=== PATIENT | female | born 1955 | race African-American/Black ===

== ENCOUNTER 2017-02-18 11:52 | Emergency (ER) | payer MEDICAID ==
--- NOTE | 2017-02-18 12:04 | ED Physician Chart ---
Chief Complaint/HPI - Patient Information Date Seen:: 02/18/17 Time Seen:: 12:04 Chief Complaint:: DIFFICULTY BREATHING 3 days. History of Present Illness:: This 61-year-old female presents with a history of chronic respiratory distress which has become more severe over the past 3 days. Patient denies any fever or chills or diaphoresis. She has had no chest pain, cough or sputum production. She denies hemoptysis. She rates the severity of her symptoms as a 7/10 and they get worse with exertion. The patient also isn't able to lay flat in bed due to difficulty breathing. No history of PND. Patient has no prior history of congestive heart failure, pulmonary embolism, DVT, COPD, or asthma. The patient does not smoke. He is significantly overweight. Allergies:: Allergies Allergy/AdvReac Type Severity Reaction Status Date / Time No Known Allergies Allergy Verified 02/18/17 12:01 Family Medical History - Family Member Mother Hx Family Diabetes: Yes Physical Exam - Physical Examination Other Gen/Cons comments:: Patient is significantly overweight but appears to be in no acute respiratory distress. She is sitting in a chair next to the gurney and prefers to stay sitting. Head: Atraumatic Eyes: Lids, conjuctiva normal, PERRL, EOMI Skin: No rash, No skin lesions, No ecchymosis, Well hydrated, No lymphadenopathy ENMT: External ears, nose nl, TM canals nl, Nasal exam nl, Lips, teeth, gums nl , Oropharynx nl, Tonsils nl Neck: Nontender, Full ROM w/o pain, No nuchal rigidity, No bruit, No mass, No stridor Other Neck comments:: The neck is too thick to evaluate for JVD. Respiratory: Nl effort/Exclusion Other Respiratory comments:: Patient has scattered rhonchi and wheezes with no rales appreciated. There is no prolongation of the expiratory phase. Cardio Vascular: No murmur, gallop, rubs, NL S1 S2 Other Cardio Vascular comments:: Patient has adequate pulses in all 4 extremities. GI: No tenderness/rebounding/guarding, No organomegaly, No hernia, Normal BS's, Nondistended, No mass/bruits, No McBurney tenderness Other GI comments:: Rectal examination deferred at my discretion. : No CVA tenderness Labs/Radiology/EKG Results - Lab Results Results: Single view AP portable chest x-ray shows significant cardiomegaly and vascular congestion consistent with CHF. No mediastinal widening. No pneumothorax. No areas of pulmonary consolidation. Impression: Cardiomegaly with moderate CHF. The radiologist report on the chest x-ray was negative for CHF. Laboratory Tests 02/18/17 02/18/17 02/18/17 12:54 12:54 12:54 WBC 9.8 RBC 4.48 Hgb 14.3 Hct 43.4 MCV 96.8 MCH 32.0 H MCHC Differential 33.1 RDW 14.8 Plt Count 241 MPV 8.9 Neutrophils % 52.2 Lymphocytes % 39.5 Monocytes % 5.9 Eosinophils % 2.1 Basophils % 0.3 Sodium 136 Potassium 4.1 Chloride 104 Carbon Dioxide 28.4 Anion Gap 7.7 BUN 14 Creatinine 1.0 Est GFR ( Amer) > 60.0 Est GFR (Non-Af Amer) > 60.0 BUN/Creatinine Ratio 14.0 Glucose 125 H Calcium 10.5 H Troponin I < 0.01 L B-Natriuretic Peptide 02/18/17 12:54 WBC RBC Hgb Hct MCV MCH MCHC Differential RDW Plt Count MPV Neutrophils % Lymphocytes % Monocytes % Eosinophils % Basophils % Sodium Potassium Chloride Carbon Dioxide Anion Gap BUN Creatinine Est GFR ( Amer) Est GFR (Non-Af Amer) BUN/Creatinine Ratio Glucose Calcium Troponin I B-Natriuretic Peptide 18.6 CBC was unremarkable. Metabolic studies show normal electrolytes and a glucose of 125 which is not clinically significant. Renal function was normal. Both the troponin and the BNP were within normal limits. This essentially rules out CHF. THE D dimer was within normal limits. Assessment - Assessment General Assessment: CASE SUMMARY: this 61-year-old female presents with increasing shortness of breath over the past three days. The patient's normal baseline is normal shortness of breath at rest. This gets worse with exertion. Over the past three days the patient has had increased difficulty in breathing. She denies any fever , chills, diaphoresis, chest pain and hemoptysis. On physical examination she is markedly overweight but appears to be in no acute distress. On auscultation she has scattered wheezes and rhonchi without prolongation of the expiratory phase. Cardiac exam was normal. She was treated with nebulized albuterol and Atrovent and stated that she felt much better. Laboratory studies were essentially unremarkable. The chest x-ray was read by the test tube maker as showing some passive congestion but no areas of pulmonary consolidation or infiltrate. The patient was discharged home with a prescription for a albuterol MDI. She was advised to follow up with her primary care physician this following week and return to the emergency department for onset of any chest pain, or increased respiratory distress. Discharged in stable condition. MDM DDX RESPIRATORY DISTRESS: NOT Pneumonia based on the patient's history and chest x-ray. NOT Congestive heart failure based on the BNP level. NOT Pulmonary embolism based on a Wells score of zero in a negative D-dimer. NOT Pneumothorax based on the patient's chest x-ray. NOT Metabolic acidosis based on laboratory studies. ED Septic Shock - . Is Septic Shock (SBP<90, OR Lactate>4 mmol\L) present?: No ED Discharge Plan - Patient Disposition Admit/Discharge/Transfer: PT DISCHARGED HOME Condition at Disposition: Improved Instructions: Shortness of Breath, [id number], Bronchitis, [id number] Additional Instructions: REST IN BETWEEN AMBULATION AND ACTIVITY. PERIODIC DEEP BREATHING EXERCISES.
[2017-02-18] MEDS ORDERED: Albuterol/Ipratropium Neb 3 ML AERS HHN ONE ×2 (12:21→12:36)
[2017-02-18 13:10] LABS: % BASOPHILS 0.3 % (0.0-2.0); % EOSINOPHILS 2.1 % (0.0-5.0); % LYMPHOCYTES 39.5 % (20.0-50.0); % MONOCYTES 5.9 % (2.0-10.0); % NEUTROPHILS 52.2 % (40.0-80.0); HEMATOCRIT 43.4 % (35.0-45.0); HEMOGLOBIN 14.3 gm/dL (11.7-15.5); MEAN CELL VOLUME 96.8 fl (81-100); MEAN CORPUSCULAR HGB CONC 33.1 pg (28.0-36.0); MEAN PLATELET VOLUME 8.9 fl; NEUTROPHILE ABSOLUTE 5.1 Th/cmm (1.8-8.0); PLATELET COUNT 241 Th/cmm (150-400); RED BLOOD COUNT 4.48 Mil/cmm (3.80-5.10); RED CELL DISTRIBUTION WIDTH 14.8 % (11.5-20.0); WHITE BLOOD COUNT 9.8 Th/cmm (4.8-10.8)
[2017-02-18 13:21] LABS: ANION GAP 7.7 (7.0-16.0); BUN - UREA NITROGEN 14 mg/dL (7-25); CALCIUM SERUM 10.5 mg/dL (8.6-10.3); CARBON DIOXIDE 28.4 mEq/L (21.0-31.0); CHLORIDE 104 mEq/L (98-107); GLUCOSE 125 mg/dL (70-105); POTASSIUM SERUM 4.1 mEq/L (3.5-5.1); SODIUM SERUM 136 mEq/L (136-145)
--- NOTE | 2017-02-19 09:22 | Diagnostic Imaging Report ---
CHEST X-RAY: AP view INDICATION: Shortness of breath COMPARISON: None FINDINGS: Suboptimal lung volumes are noted bronchovascular crowding. No focal consolidation or definite effusions. Heart size cannot be well assessed on this exam. Osseous structures are intact. IMPRESSION: Suboptimal lung markings and bronchovascular crowding. There may be a mild degree of congestion. Please correlate clinically. No focal consolidation identified. Recommend follow-up views with improved inspiration.
== END 2017-02-18 14:56 | disposition home or self-care (01) ==
LOC: ER 11:52
DX: R06.00 Dyspnea, unspecified (principal)
CPT/HCPCS: 36415-UA; 71010-TC; 80048-TC; 83880-TC; 84484-TC; 85025-TC; 85379-TC; 93005; 94640